=== PATIENT | female | born 1940 | race Caucasian/White ===

== ENCOUNTER 2016-12-08 10:21 | Emergency (ER) | payer OTHER, MEDICAID ==
--- NOTE | 2016-12-08 11:47 | ED Physician Documentation ---
Chest Pain - HISTORIAN Historian: patient - HPI Stated Complaint: rib and chest pain Chief Complaint: Chest Pain Additional Information: Walking her dog, dog and another dog got into a dog fight which pulled on leash and pt. cradled her dog to protect it, was straining against its struggles to break free and fight the other dog. Onset: hours (1) Timing: sudden onset Duration: sudden-onset Last known Well Date: 12/08/16 Last Known Well Time: 09:00 Last known Well Code/Unknown Code: Unknown Context: activity Severity: mild Quality: aching (left pectoral area into shoulder) Chest Pain Radiation: other (left shoulder) Chest Pain Signs/Symptoms: dyspnea. denies: nausea, vomiting, diaphoresis, cool extremities, dizziness, tachypnea, tachycardia, hypotension, palpitations, weakness Worsened By: exertion Relieved By: rest - ROS CONST: none MS/LYMPH: neck pain (left) GI/: none EYES/ENT: none SKIN/ENDO: none NEURO/PSYCH: none - PAST HX VT risk factors: hypertension, cardiac disease, AMI DVT/PE Risk Factors: none TAD/AAA risk factors: none Neuro deficit: none GI disease: none Lung disease: none Surgeries/Procedures: cardiac cath Immunizations: referred to PCP Allergies/Adverse Reactions: Allergies Allergy/AdvReac Type Severity Reaction Status Date / Time No Known Allergies Allergy Verified 03/09/16 10:17 Home Medications: Ambulatory Orders Medication Instructions Recorded Amiodarone HCl [Pacerone] 400 mg PO D 12/12/13 Carvedilol [Coreg] 6.25 mg PO D 12/12/13 Nitroglycerin 0.4 mg SL 1T PRN 12/12/13 Pravastatin Sodium [Pravachol] 40 mg PO D 12/12/13 Furosemide [Furosemide] 1 tab PO DAILY 07/11/14 Iron Fum & Ag/C/B12/FA/Ca/Succ 1 tab PO DAILY 07/11/14 [Mv-Iron Eqd-Agt-Njt-T63-UY-Uix] Potassium Chloride [Klor-Con M20] 20 meq PO DAILY #3 tab.er.prt 03/09/16 Sulfamethoxazole/Trimethoprim 1 each PO BID #20 tab 03/09/16 [Bactrim Ds] - SOCIAL HX Smoking History: non-smoker Alcohol Use: none Drug Use: none - FAMILY HX Family HX: none - VITAL SIGNS Vital Signs: Vital Signs Temp Pulse Resp BP Pulse Ox 98.5 F 65 18 191/96 100 12/08/16 10:41 12/08/16 10:41 12/08/16 10:41 12/08/16 10:41 12/08/16 10:41 - REVIEWED ASSESSMENTS Nursing Assessment Reviewed: Yes Vitals Reviewed: Yes Progress - Results/Orders Results/Orders: ekg, cxr ordered - Progress Progress: pt. stable entire time in er Critical Care Note - Critical Care Note Total Time (mins): 0 ED Results Lab/Radiology - Lab Results Lab Results: none taken - Radiology Radiology Impressions: chest x-ray neg - Orders Orders: ED Orders Category Date Time Status CHEST P.A.&LAT 2 VIEWS [RAD] Stat Exams 12/08/16 Ordered EKG WITH COMPARISON Routine Ther 12/08/16 Ordered Chest Pain Physical Exam - EXAM General Appearance: no acute distress, alert EENT: eye inspection normal, ENT inspection normal, pharynx normal, no signs of dehydration, AMADO, no nystagmus, TM's nml Neck: nml inspection, no carotid bruit Respiratory: no resp. distress, chest non-tender, nml breath sounds, other ( left pectoral tenderness reproducing chest pain) CVS: reg. rate & rhythm Abdomen: soft, no organomegaly, normal bowel sounds, no abdominal bruit, no distension, non-tender Skin: warm/dry, normal color Extremities: non-tender, normal range of motion, no evidence of injury Neuro: oriented X3, CN's nml as tested, motor nml, sensation nml, mood/affect nml, cognition normal Discharge Clincal Impression: Costochondritis Referrals: Jet Connor MD [Primary Care Provider] - 2 Days Home Medications: Ambulatory Orders Amiodarone HCl [Pacerone] 400 mg PO D 12/12/13 Carvedilol [Coreg] 6.25 mg PO D 12/12/13 Nitroglycerin 0.4 mg SL 1T PRN 12/12/13 Pravastatin Sodium [Pravachol] 40 mg PO D 12/12/13 Furosemide [Furosemide] 1 tab PO DAILY 07/11/14 Iron Fum & Ag/C/B12/FA/Ca/Succ [Mv-Iron Sij-Uhr-Mpj-C11-HP-Ezo] 1 tab PO DAILY 07/11/14 Potassium Chloride [Klor-Con M20] 20 meq PO DAILY #3 tab.er.prt 03/09/16 Sulfamethoxazole/Trimethoprim [Bactrim Ds] 1 each PO BID #20 tab 03/09/16 Comments: discharged with otc nsaids/tylenol recommendations Condition: Stable Disposition: 01 HOME, SELF-CARE Decision to Admit: NO Decision Time: 11:50
[2016-12-08 12:02] VITALS: BP 192/84
--- NOTE | 2016-12-08 18:48 | Diagnostic Imaging Report ---
[facility] [address] [address] Report Submission Date: Dec 08, 2016 11:39:27 AM CDT Patient Study Name: LD GARZA Date: Dec 08, 2016 11:10:18 AM CDT Modality Type: CR Gender: F Description: CHEST : [birth year] Institution: [facility] Physician: SONAL DIAZ - ER 2 views the chest Clinical history: Chest pain Findings: The heart size is mildly enlarged. The pulmonary vasculature is normal. No pleural effusion, pneumothorax or alveolar consolidation. Impression: Negative Electronically signed on Dec 08, 2016 11:39:27 AM CDT by: Gagandeep BARAJAS
== END 2016-12-08 11:58 | disposition home or self-care (01) ==
LOC: ED 10:21
DX: M94.0 Chondrocostal junction syndrome [Tietze] (principal)
CPT/HCPCS: 71020; 99283

== ENCOUNTER 2017-04-23 08:38 | Outpatient (CLI) | payer OTHER ==
--- NOTE | 2017-04-23 13:46 | Diagnostic Imaging Report ---
RODO MONROY - ISA [facility] [address] [facility].[address] [address] Report Submission Date: Apr 23, 2017 9:36:50 AM CDT Patient Study Name: LD GARZA Date: Apr 23, 2017 8:42:45 AM CDT Modality Type: CR Gender: F Description: LOWER EXTREMITY : [birth year] Institution: [facility] Physician: RODO MONROY Examination: Plain film toe History: Injury Findings: 3 views of the toe demonstrates osteopenia. Fracture involving the distal margin of the mid phalanx 2nd digit. Remaining cortical margins demonstrate mild degenerative changes without fracture. Impression: Fracture involving the distal margin of the mid phalanx 2nd digit. Electronically signed on Apr 23, 2017 9:36:50 AM CDT by: Emre BARAJAS
== END 2017-04-23 08:40 ==
LOC: RAD 08:38
PROVIDERS: ATTEND Family Medicine
DX: S99.922A Unspecified injury of left foot, initial encounter (principal); X58.XXXA Exposure to other specified factors, initial encounter; Y93.9 Activity, unspecified
CPT/HCPCS: 73660

== ENCOUNTER 2017-08-22 10:42 | Outpatient (CLI) | payer OTHER | END 2017-08-22 10:43 | LOC: RAD 10:42 | PROVIDERS: ATTEND Family Medicine | DX: M81.0 Age-related osteoporosis without current pathological fracture (principal) | CPT/HCPCS: 77080 ==

== ENCOUNTER 2017-08-30 15:00 | Outpatient (CLI) | payer OTHER | END 2017-08-30 15:02 | LOC: POD 15:00 | PROVIDERS: ATTEND Podiatrist | DX: B35.1 Tinea unguium (principal); M79.674 Pain in right toe(s); M79.675 Pain in left toe(s) | CPT/HCPCS: 11721; G0463 ==

== ENCOUNTER 2017-12-02 19:32 | Emergency (ER) | payer OTHER ==
[2017-12-02] MEDS: KETOROLAC TROMETHAMINE 60 MG/2 ML VIAL IM ONE (19:50)
--- NOTE | 2017-12-02 20:05 | ED Physician Documentation ---
Sore Throat/Dental Pain - HISTORIAN Historian: patient - HPI Stated Complaint: Right Sided Dental Pain Chief Complaint: Dental Pain Further Comments: yes (77 year old female patient presents with complaint of dental pain in right upper molar, started today at 2pm.) - ROS CONST: no problems CVS/RESP: none GI/: denies: nausea, vomiting MS/SKIN/LYMPH: denies: muscle aches NEURO/PSYCH: none - PAST HX Past History: denies: none Other History: other (HTN, HLD) Allergies/Adverse Reactions: Allergies Allergy/AdvReac Type Severity Reaction Status Date / Time No Known Allergies Allergy Verified 12/02/17 19:45 Home Medications: Ambulatory Orders Medication Instructions Recorded Amiodarone HCl [Pacerone] 400 mg PO D 12/12/13 Carvedilol [Coreg] 6.25 mg PO D 12/12/13 Nitroglycerin 0.4 mg SL 1T PRN 12/12/13 Pravastatin Sodium [Pravachol] 40 mg PO D 12/12/13 Furosemide [Furosemide] 1 tab PO DAILY 07/11/14 Iron Fum & Ag/C/B12/FA/Ca/Succ 1 tab PO DAILY 07/11/14 [Mv-Iron Mvq-Hmb-Gkq-I84-QM-Lsd] Potassium Chloride [Klor-Con M20] 20 meq PO DAILY #3 tab.er.prt 03/09/16 Amoxicillin [Trimox] 500 mg PO TID #30 capsule 12/02/17 Citalopram Hydrobromide 20 mg PO DAILY 12/02/17 [Citalopram HBr] Levothyroxine Sodium [Synthroid] 75 mcg PO DAILY 12/02/17 Tramadol HCl [Ultram] 50 mg PO PRN PRN 12/02/17 - SOCIAL HX Smoking History: cigarettes - FAMILY HX Family History: No - VITAL SIGNS Vital Signs: Vital Signs Temp Pulse Resp BP Pulse Ox 98.9 F 67 18 171/78 98 12/02/17 19:35 12/02/17 19:35 12/02/17 19:35 12/02/17 19:35 12/02/17 19:35 - REVIEWED ASSESSMENTS Nursing Assessment Reviewed: Yes Vitals Reviewed: Yes ED Results Lab/Radiology - Orders Orders: ED Orders Category Date Time Status Ketorolac Tromethamine [Toradol] Med 12/02/17 19:48 Discontinued 60 mg IM NOW ONE Dental Pain Physical Exam - EXAM General Appearance: no acute distress, alert Mouth/Throat: lips nml, pharynx nml, voice nml, no air way problems, no thrush, dental tenderness, gum swelling around teeth (left upper back molar with large cavity noted; multiple missing teeth, wide spread decay), widespread dental decay Respiratory: no resp. distress CVS: reg. rate & rhythm Skin: normal color, warm/dry, NR, INT, PAL, DR Neuro/Psych: No: weakness Discharge Clincal Impression: Pain, dental, Dental caries Prescriptions: Amoxicillin [Trimox] 500 mg PO TID #30 capsule Referrals: Jet Connor MD [Primary Care Provider] - 2 Days Additional Instructions: Ibuprofen 800mg every 8 hours x 3 days Tylenol 650-1000mg every 4 hours as needed for pain, limit your dose to 4G in 24 hours. Over the counter DenTek - follow package directions. Over the counter Orajel as needed for pain supervisor rough end your antibiotic today. See your dentist as soon as possible Condition: Stable Disposition: 01 HOME, SELF-CARE Decision to Admit: NO Decision Time: 20:04
[2017-12-02] MEDS: HYDROcodone /APAP 5/325 1 EACH TABLET PO ONE (20:15)
[2017-12-02 20:17] VITALS: BP 162/72
== END 2017-12-02 20:16 | disposition home or self-care (01) ==
LOC: ED 19:32
DX: K02.9 Dental caries, unspecified (principal)
CPT/HCPCS: A9270; J1885; 96372; 99282

== ENCOUNTER 2018-03-06 14:49 | Outpatient (CLI) | payer OTHER ==
--- NOTE | 2018-03-06 18:49 | Diagnostic Imaging Report ---
RODO MONROY [facility] [address] [facility].[address] [address] Report Submission Date: Mar 06, 2018 3:19:14 PM CDT Patient Study Name: YAZ GARZA Date: Mar 06, 2018 3:00:01 PM CDT Modality Type: DX Gender: F Description: LOWER EXTREMITY : 44 Institution: [facility] Physician: RODO MONROY Examination: Plain film left knee History: LEFT KNEE, PAIN IN LEFT KNEE AFTER FALL 2 DAYS AGO, ABRASION TO KNEE ( Hx) Findings: 4 views of the left knee demonstrates osteopenia. Articular degenerative spurring. No fracture. No dislocation. No joint effusion. No soft tissue irregularity. Impression: Osteopenia and degenerative spurring. No acute appearing osseous abnormality. Electronically signed on Mar 06, 2018 3:19:14 PM CDT by: Emre BARAJAS
== END 2018-03-06 15:00 ==
LOC: RAD 14:49
PROVIDERS: ATTEND Family Medicine
DX: S80.212A Abrasion, left knee, initial encounter (principal); M81.0 Age-related osteoporosis without current pathological fracture; X58.XXXA Exposure to other specified factors, initial encounter; Y92.9 Unspecified place or not applicable; Y93.9 Activity, unspecified
CPT/HCPCS: 73562

== ENCOUNTER 2018-07-11 15:21 | Emergency (ER) | payer OTHER ==
[2018-07-11 15:44] VITALS: BP 109/50
[2018-07-11] MEDS ORDERED: 0.9 % SODIUM CHLORIDE 1,000 ML IV ONE (15:49)
[2018-07-11 16:23] LABS: eGFR (Non-African) > 60
--- NOTE | 2018-07-11 17:10 | ED Physician Documentation ---
Abdominal Pain - HISTORIAN Historian: patient - HPI Stated Complaint: Abdominal Pain Chief Complaint: Abdominal Pain Onset: other (last Saturday ) Duration: constant Timing: still present Context: denies: out of country travel, bad food, recent trauma Severity: mild (12/31) Quality: aching, dull, cramping, sharp Associated Symptoms: diarrhea (two days ago she had diarrhea ), loss of appetite, back pain. denies: fever, chills, nausea, vomiting, coffee ground emesis, bloody emesis, bloody stools, grossly bloody stools, mucous, sweating, chest pain, neck pain Exacerbated by: supine, movements Relieved by: upright position Further Comments: yes (She states last Saturday she started with LLQ pain that was "on and off" and no consistent pain. She states then two days ago she started to have increased pain and she did see her PCP and she was treated with cough med due to exposures. She states the pain is on the LLQ and around to her lower back - she reports that she was told it might be a kidney stone. She has not seen any blood in her urine. Denies any injury. She had a few days of diarrhea and then a bowel movement two days ago) - ROS CONST: no problems GI/: problems urinating (mild burning with urination ). 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 ) Other History: other (COPD ) Home Medications: Ambulatory Orders Medication Instructions Recorded Amiodarone HCl [Pacerone] 400 mg PO D 12/12/13 Carvedilol [Coreg] 6.25 mg PO D 12/12/13 Nitroglycerin 0.4 mg SL 1T PRN 12/12/13 Pravastatin Sodium [Pravachol] 40 mg PO D 12/12/13 Furosemide 1 tab PO DAILY 07/11/14 Iron Fum & Ag/C/B12/FA/Ca/Succ 1 tab PO DAILY 07/11/14 [Mv-Iron Kzm-Deb-Rno-N50-NY-Uxg] Potassium Chloride [Klor-Con M20] 20 meq PO DAILY #3 tab.er.prt 03/09/16 Citalopram Hydrobromide 20 mg PO DAILY 12/02/17 [Citalopram HBr] Levothyroxine Sodium [Synthroid] 75 mcg PO DAILY 12/02/17 Tramadol HCl [Ultram] 50 mg PO PRN PRN 12/02/17 Allergies/Adverse Reactions: Allergies Allergy/AdvReac Type Severity Reaction Status Date / Time No Known Allergies Allergy Verified 12/02/17 19:45 - VITAL SIGNS Vital Signs: Vital Signs Temp Pulse Resp BP Pulse Ox 98.4 F 66 20 109/50 97 07/11/18 15:25 07/11/18 15:25 07/11/18 15:25 07/11/18 15:25 07/11/18 15:25 - REVIEWED ASSESSMENTS Nursing Assessment Reviewed: Yes Vitals Reviewed: Yes Progress - Progress Progress: 1735: discussed results and plan - she is agreeable pain is 2/10 she just "wanted to know what it was"DG ED Results Lab/Radiology - Lab Results Lab Results: Lab Results 07/11/18 07/11/18 Unknown Unknown Sodium 137 mmol/L mmol/L (136-145) Potassium 4.0 mmol/L mmol/L (3.5-5.1) Chloride 98 mmol/L mmol/L (98-107) Carbon Dioxide 28 mmol/L mmol/L (22-30) BUN 18 mg/dL H mg/dL (7-17) Creatinine 1.00 mg/dL mg/dL (0.52-1.04) Estimated Creat Clear 61 Est GFR ( Amer) > 60 (60 - ) Est GFR (Non-Af Amer) > 60 (60 - ) Glucose 93 mg/dL mg/dL (74-106) Calcium 8.3 mg/dL L mg/dL (8.4-10.2) Total Bilirubin 0.4 mg/dL mg/dL (0.2-1.3) AST 34 U/L U/L (15-46) ALT 25 U/L U/L (13-69) Alkaline Phosphatase 73 U/L U/L (38-126) Total Protein 7.3 g/dL g/dL (6.3-8.2) Albumin 4.0 g/dL g/dL (3.5-5.0) Lipase 153 U/L U/L (23-300) - Radiology Radiology Impressions: CT Abdomen/pelvis History: The left lower quadrant pain No similar comparison studies Bibasilar atelectasis. Motion artifact degrades the study, no free intraperitoneal air. Multilevel thoracolumbar spondylosis. Cardiomegaly Splenic calcified granulomas. The liver, adrenal glands, pancreas are within normal limits. There is minimal nonspecific fat stranding around the gallbladder. Bilateral renal cortical scarring. Large 3.5 cm right lower pole renal cyst. Additional smaller cyst seen in the right kidne. Possible nonobstructing right renal calculus versus vascular calcification with right ureter is dilated. Right groin hernia contains fat. Post hysterectomy. Colonic diverticulosis present, large amount of stool is present throughout the colon, appendix is not identified, postsurgical changes are suggested at the cecum Atherosclerotic calcification of the aorta and its branches Impression: 1. No bowel obstruction. Appendix is not identified. Large amount of stool throughout the colon. Colonic diverticulosis present without obvious evidence of acute diverticulitis. 2. Bilateral renal cortical scarring, right hydronephrosis with prominent right ureter, cause is not known. 3. Large right renal cyst, minimal nonspecific fat stranding around the gallbladder. Consider follow up imaging as needed Electronically signed on Jul 11, 2018 5:15:11 PM CDT by: Melania Foote - Orders Orders: ED Orders Category Date Time Status Place IV Lock 1T Care 07/11/18 15:[address] ABD & PELVIS W/ CON Stat Exams 07/11/18 Ordered CBC REF Routine Lab 07/11/18 Received CMP Routine Lab 07/11/18 Completed LIPASE Stat Lab 07/11/18 Completed URINALYSIS Routine Lab 07/11/18 Ordered 0.9 % Sodium Chloride [Normal Saline] 1,000 ml Med 07/11/18 15:49 Active IV NOW Abdominal Pain Physical Exam - Physical Exam General Appearance: no acute distress, alert EENT: eye inspection normal, ENT inspection normal, pharynx normal, no signs of dehydration NECK: normal inspection RESPIRATORY: no resp distress, chest non-tender, breath sounds normal CVS: reg rate & rhythm, heart sounds normal, equal pulses, no murmur ABDOMEN: soft, no distension, tenderness (LLQ with palpation ) BACK: normal inspection, no CVA tenderness SKIN: warm/dry EXTREMITIES: non-tender, normal range of motion, no evidence of injury, no edema NEURO: oriented X3 Vital Signs: Vital Signs Temp Pulse Resp BP Pulse Ox 98.4 F 66 20 109/50 97 07/11/18 15:25 07/11/18 15:25 07/11/18 15:25 07/11/18 15:25 07/11/18 15:25 Discharge Clincal Impression: Constipation Qualifiers: Constipation type: unspecified constipation type Qualified Code(s): K59.00 - Constipation, unspecified Referrals: Jet Connor MD [Primary Care Provider] - 2 Days Additional Instructions: 1. Miralax 1 packet in 8 oz of fluid daily 2. Increase fluids 3. Follow up with PCP early next week for re eval 4. Return to ER for any concerns Condition: Stable Disposition: 01 HOME, SELF-CARE Decision to Admit: NO Date of Decison to Admit: 07/11/18 Decision Time: 17:38
[2018-07-11 17:41] LABS: BASO % 0.8 % (0.0-1.5); EOS % 4.4 % (0.0-6.8); LYMPH ABS # 1.65 thou/uL (0.60-4.00); MCH. 28.9 pg (28.0-34.0); MCV 87.1 fL (80.0-100.0); MONOCYTE % 6.8 % (0.0-11.0); MONOCYTE ABS # 0.45 thou/uL (0.00-0.90); PLATELET COUNT 246 thou/uL (130-400)
--- NOTE | 2018-07-11 17:59 | Diagnostic Imaging Report ---
RAJNI MORGAN [facility] [address] [facility] [address] [place], [place]. [address] Report Submission Date: Jul 11, 2018 5:15:11 PM CDT Patient Study Name: YAZ GARZA Date: Jul 11, 2018 4:37:52 PM CDT Modality Type: CT\SR Gender: F Description: CT ABD PELVIS W/ CON : 44 Institution: [facility] Physician: RAJNI MORGAN CT Abdomen/pelvis History: The left lower quadrant pain No similar comparison studies Bibasilar atelectasis. Motion artifact degrades the study, no free intraperitoneal air. Multilevel thoracolumbar spondylosis. Cardiomegaly Splenic calcified granulomas. The liver, adrenal glands, pancreas are within normal limits. There is minimal nonspecific fat stranding around the gallbladder. Bilateral renal cortical scarring. Large 3.5 cm right lower pole renal cyst. Additional smaller cyst seen in the right kidne. Possible nonobstructing right renal calculus versus vascular calcification with right ureter is dilated. Right groin hernia contains fat. Post hysterectomy. Colonic diverticulosis present, large amount of stool is present throughout the colon, appendix is not identified, postsurgical changes are suggested at the cecum Atherosclerotic calcification of the aorta and its branches Impression: 1. No bowel obstruction. Appendix is not identified. Large amount of stool throughout the colon. Colonic diverticulosis present without obvious evidence of acute diverticulitis. 2. Bilateral renal cortical scarring, right hydronephrosis with prominent right ureter, cause is not known. 3. Large right renal cyst, minimal nonspecific fat stranding around the gallbladder. Consider follow up imaging as needed Electronically signed on Jul 11, 2018 5:15:11 PM CDT by: Melania BARAJAS
[2018-07-13 06:45] LABS: APPEARANCE,URINE CLEAR (CLEAR); COLOR,URINE YELLOW (YELLOW); OCCULT BLOOD,URINE NEGATIVE (NEGATIVE); UROBILINOGEN URINE 0.2 Eu (0.2-1.0)
== END 2018-07-11 17:40 | disposition home or self-care (01) ==
LOC: ED 15:21
DX: K59.00 Constipation, unspecified (principal); R19.7 Diarrhea, unspecified; R30.9 Painful micturition, unspecified; J44.9 Chronic obstructive pulmonary disease, unspecified; F17.210 Nicotine dependence, cigarettes, uncomplicated
CPT/HCPCS: 74177; 80053; 81002; 83690; 85025; 96365; 99284; 99285; J7030; Q9967; S1016

== ENCOUNTER 2018-12-25 12:46 | Outpatient (CLI) | payer OTHER ==
[2018-12-25 13:31] LABS: BASOPHILS % 0.7 % (0.0-1.5); EOSINOPHILS % 3.5 % (0.0-6.8); MEAN CORPUSCULAR HEMOGLOBIN 29.6 pg (28.0-34.0); MONOCYTES % 7.1 % (0.0-11.0); NEUTROPHILS # 3.7 # k/uL (1.4-7.7)
[2018-12-25 13:36] LABS: eGFR (Non-African) > 60
--- NOTE | 2018-12-25 15:01 | Diagnostic Imaging Report ---
<p>Your browser does not support iframes.</p> KEIRY KINSEY [place] [id number] [facility].[address] [address] Report Submission Date: Dec 25, 2018 2:32:30 PM CDT Patient Study Name: YAZ GARZA Date: Dec 25, 2018 1:14:53 PM CDT Modality Type: US\OT Gender: F Description: US DEJON 3+ BILAT COMPLETE : 44 Institution: [facility] Physician: KEIRY KINSEY Examination: Ultrasound arterial History: PVD Comparison exams: None available Findings: Sonographic evaluation of the lower extremity arterial system from the groin to the distal extremities bilaterally demonstrates diminished waveforms: left greater than right. Right ankle/brachial index of 0.72. Left ankle/brachial index of 0.56 Impression: Diminished ABIs bilaterally, left greater than right, indicating restriction to hemodynamic flow. Patient may benefit from dedicated lower extremity runoff examination (CTA/MRA) to further characterize. Electronically signed on Dec 25, 2018 2:32:30 PM CDT by: Emre BARAJAS
== END 2018-12-25 12:48 ==
LOC: RAD 12:46
PROVIDERS: ATTEND Family Medicine
DX: R53.83 Other fatigue (principal); I73.9 Peripheral vascular disease, unspecified
CPT/HCPCS: 36415; 80053; 84439; 84443; 84481; 85025; 93923

== ENCOUNTER 2019-02-27 14:24 | Outpatient (CLI) | payer OTHER | END 2019-02-27 14:29 | disposition home or self-care (01) | LOC: LAB 14:24 | PROVIDERS: ATTEND Internal Medicine Nephrology | DX: I12.9 Hypertensive chronic kidney disease with stage 1 through stage 4 chronic kidney disease, or unspecified chronic kidney disease (principal); N18.3 Chronic kidney disease, stage 3 (moderate); Z68.31 Body mass index [BMI] 31.0-31.9, adult | CPT/HCPCS: 36415; 80069 ==

== ENCOUNTER 2019-04-09 11:48 | Emergency (ER) | payer OTHER ==
[2019-04-09 12:00] VITALS: BP 118/60
--- NOTE | 2019-04-09 12:08 | ED Physician Documentation ---
Fall - HPI Stated Complaint: Fall Chief Complaint: Fall Additional Information: Patient presents to ED complaining of right chest wall pain after falling on Saturday. Patient states she tripped over the sidewalk and fell on her right chest. She states, "I got the wind knocked out of me". Since that time she has had worsening right sided chest wall pain, worse with deep inspiration. She denies any other complaints. Onset: days ago (2) Where: home Context: tripped r: moderate Associated Symptoms:: denies: no loss of consciousness Location of Pain/Injury: chest (right) Injury to Right Extremity: none Injury to Left Extremity: none Further Comments: no - ROS CONST: no problems NEURO: denies: dizziness MS/SKIN/LYMPH: denies: weakness EYES/ENT: denies: problems with vision CVS/RESP: denies: chest pain, shortness of breath GI/: denies: nausea, vomiting - PAST HX Past History: none Allergies/Adverse Reactions: Allergies Allergy/AdvReac Type Severity Reaction Status Date / Time No Known Allergies Allergy Verified 04/09/19 12:00 Home Medications: Ambulatory Orders Medication Instructions Recorded Amiodarone HCl [Pacerone] 400 mg PO D 12/12/13 Carvedilol [Coreg] 6.25 mg PO D 12/12/13 Nitroglycerin 0.4 mg SL 1T PRN 12/12/13 Pravastatin Sodium [Pravachol] 40 mg PO D 12/12/13 Iron Fum & Ag/C/B12/FA/Ca/Succ 1 tab PO DAILY 07/11/14 [Mv-Iron Omd-Ydt-Eez-X18-DE-Tkg] Potassium Chloride [Klor-Con M20] 20 meq PO DAILY #3 tab.er.prt 03/09/16 predniSONE [Deltasone] 10 mg PO DAILY #10 tablet 04/09/19 - SOCIAL HX Smoking History: non-smoker Alcohol Use: none Drug Use: none - FAMILY HX Family History: none - VITAL SIGNS Vital Signs: Vital Signs Temp Pulse Resp BP Pulse Ox 68 15 118/60 96 04/09/19 11:50 04/09/19 11:50 04/09/19 11:50 04/09/19 11:50 - REVIEWED ASSESSMENTS Nursing Assessment Reviewed: Yes Vitals Reviewed: Yes Fall Physical Exam - Physical Exam General Appearance: no acute distress, alert Head: non-tender Neck: non-tender Eye: AMADO ENT: no dental injury, no oral injury Resp/CVS: no ecchymosis, breath sounds nml, no resp. distress, heart sounds nml, rib tenderness (right anterior) Abdomen: soft, non-tender Neuro: oriented x3 Skin: color nml, no rash Back: normal inspection, no vertebral tenderness Extremities: atraumatic, pelvis stable, hips non-tender, nml ROM Joint: joints nml, nml ROM, Nml gait/weight bearing - Jordi Coma Score Eyes Open: Spontaneous Speech: Oriented Motor: Obeys Commands Discharge Clincal Impression: Costochondritis Prescriptions: predniSONE [Deltasone] 10 mg PO DAILY #10 tablet Referrals: Manny Bello MD [Primary Care Provider] - 2 Days Additional Instructions: 1. Start Prednisone taper tomorrow 2. Tylenol as needed for pain 3. Apply ice or heat as needed for comfort 4. Do deep breathing (5-7 deep breaths) every hour while awake. 5. Follow up with Dr. Bello within 1 week 6. Return to ER for new or worsening symptoms Condition: Stable Disposition: 01 HOME, SELF-CARE Decision to Admit: NO Date of Decison to Admit: 04/09/19 Decision Time: 12:24
[2019-04-09] MEDS ORDERED: methylPREDNISolone SOD SUCC 125 MG/2 ML VIAL IM ONE (12:12)
--- NOTE | 2019-04-10 07:24 | Diagnostic Imaging Report ---
CORY LONG [facility] [address] [facility] [place] [facility] [address] [place], [place]. [address] Report Submission Date: Apr 09, 2019 12:42:59 PM CDT Patient Study Name: YAZ GARZA Date: Apr 09, 2019 12:11:52 PM CDT Modality Type: DX Gender: F Description: CHEST 2VIEW : 44 Institution: [facility] Physician: CORY LONG Exam: Chest two views. History: fall. No previous studies are available for comparison. Lung tidwell are well aerated without kezia consolidation or effusion. Heart and mediastinal contour are normal. Degenerate changes in thoracic spine are seen. Impression: No kezia consolidation or effusion. Electronically signed on Apr 09, 2019 12:42:59 PM CDT by: Lj BARAJAS
== END 2019-04-09 12:30 | disposition home or self-care (01) ==
LOC: ED 11:48
DX: M94.0 Chondrocostal junction syndrome [Tietze] (principal)
CPT/HCPCS: 71046

== ENCOUNTER 2019-04-16 11:16 | Outpatient (CLI) | payer OTHER, MEDICAID ==
[2019-04-16 11:59] LABS: HDL 64 mg/dL (>40); eGFR (Non-African) > 60
== END 2019-04-16 11:18 ==
LOC: LAB 11:16
PROVIDERS: ATTEND Family Medicine
DX: E78.5 Hyperlipidemia, unspecified (principal)
CPT/HCPCS: 36415; 80053; 80061